=== PATIENT | female | born 1990 ===

== ENCOUNTER → 2022-09-15 | Outpatient (CLI) | payer OTHER ==
[2022-09-15 15:33] LABS: Follicle Stimulating Hormone 2.8 mIU/ml; Free Thyroxine 1.06 ng/dL (0.70-1.60); Prolactin 7.2 ng/mL; Thyroid Stimulating Hormone 1.51 uIU/mL (0.360-4.800); Triiodothyronine, Free 3.24 pg/mL (2.18-3.98)
[2022-09-19 12:11] LABS: FREE TESTOSTERONE(DIRECT) 11.9 pg/mL (0.0-4.2)
== END ==
LOC: LAB 13:02 → LAB SHORT 13:02
PROVIDERS: Registered Nurse Community Health
DX: N92.6 Irregular menstruation, unspecified (principal)
CPT/HCPCS: 36415; 83001; 83002; 84146; 84402; 84403; 84439; 84443; 84481

== ENCOUNTER → 2023-06-08 | Outpatient (CLI) | payer OTHER ==
[2023-06-08 15:38] LABS: Bacterial Vaginosis PCR Negative (NEGATIVE); Candida Group, PCR NOT DETECTED (NOT DETECT); Candida glabrata-krusei, PCR NOT DETECTED (NOT DETECT)
== END | disposition home or self-care (01) ==
LOC: LAB 12:00 → LAB SHORT 12:00
PROVIDERS: Registered Nurse Community Health
DX: N89.8 Other specified noninflammatory disorders of vagina (principal)
CPT/HCPCS: 87481; 87661; 87801

== ENCOUNTER → 2024-06-11 | Outpatient (CLI) | payer OTHER | END | disposition home or self-care (01) | LOC: LAB SHORT 13:45 → LAB 13:45 | PROVIDERS: Registered Nurse Community Health | DX: L68.0 Hirsutism (principal) | CPT/HCPCS: 84402; 84443 ==